=== PATIENT | female | born 1960 | race Caucasian/White ===

== ENCOUNTER 2017-06-11 17:33 | Observation (INO) ==
[2017-06-11] MEDS: *HR* Dextrose 50 % in Water (Syg) 50 ML SYRINGE ONE ×3 (17:38→19:03)
--- NOTE | 2017-06-11 17:49 | Emergency Department Note ---
Disposition Clinical Impression: Altered mental status, Diabetes mellitus, Hypoglycemia Disposition: Admitted As Inpatient Condition: Fair Referrals: NONE,PCP [Non-Partnered Physician] - Forms: ED Satisfaction Letter Time of Disposition: 21:00 ([facility]) Altered Mental Status HPI - General Chief Complaint: ED Altered Mental Status Stated Complaint: altered mental status Time Seen by Provider: 06/11/17 17:36 Source: EMS Mode of arrival: EMS Limitations: altered mental status Nursing Notes Reviewed: Yes Vital Signs Reviewed: Yes - History of Present Illness HPI Narrative: She arrives unable to what is occurring she apparently was at dialysis per EMS when they went to pick her up they had poor her out of the chair as they " stated because she was unable to be aroused they stated that she had been sleeping through dialysis the whole shift where she is on for 4 hours as result that EMS was unable to arouse renal sternal rub they brought her directly to the emergency room for evaluation they did not do IV or give any medications in route they were less than 2 minutes away from our facility as result bringing her directly to the ER for mental status MD complaint: altered mental status, decreased responsiveness Onset (ago): hour(s) (2) Timing confirmed by: other (ems) Pain Severity: none Consistency of Symptoms: constant Context: diabetes Associated symptoms: Reports: other (And unable to provide history as result patient arrived unresponsive) - Related Data Home Medications Medication Instructions Recorded Confirmed Insulin ASPART [NovoLOG] 20 - 45 unit SQ TIDWM 05/16/15 06/02/17 Albuterol Sulfate [Ventolin Hfa] 2 puff IH Q4H PRN 09/07/15 06/02/17 Budesonide/Formoterol 160/4.5 2 puff IH BIDR 09/07/15 06/02/17 [Symbicort] Ipratropium/Albuterol Neb [Duoneb] 3 ml IH Q6HR PRN 09/07/15 06/02/17 Omeprazole [PriLOSEC] 20 mg PO DAILY 02/13/16 06/02/17 Fenofibrate [Tricor] 54 mg PO DAILY 07/09/16 06/02/17 Insulin Glargine,Hum.rec.anlog 45 units SQ BID 07/09/16 06/02/17 [Toujohn Solostmandy] Aspirin [Lo-Dose Aspirin EC] 81 mg PO DAILY 08/05/16 06/02/17 Gabapentin [Neurontin] 100 mg PO TID 08/05/16 06/02/17 Cholecalciferol (Vitamin D3) 5,000 unit PO DAILY 08/20/16 06/02/17 [Vitamin D3] Tiotropium [Spiriva] 1 cap IH DAILY 09/18/16 06/02/17 Metoprolol [Lopressor] 12.5 mg PO BID 10/23/16 06/02/17 Calcium Acetate [Phos-LO] 1,334 mg PO TIDWM 12/29/16 06/02/17 Previous Rx's Medication Instructions Recorded Ferrous Sulfate 325 mg PO BIDWM #60 tablet 09/04/16 Darbepoetin [Aranesp] 40 mcg SQ QWEEK 06/06/17 HYDROcodone/Acet 5/325 mg [[place] 1 tab PO Q8HR PRN #15 tab 06/06/17 5-325 mg] LORazepam [Ativan] 0.5 mg PO BID PRN #15 tab 06/06/17 Lisinopril [Zestril] 20 mg PO DAILY #0 06/06/17 predniSONE [PredniSONE] 40 mg PO DAILY #10 tab 06/06/17 Allergies Allergy/AdvReac Type Severity Reaction Status Date / Time isosorbide [From Imdur] Allergy Chest Pain Verified 05/31/17 16:01 Penicillins [PCN] Allergy Swelling Verified 05/31/17 16:01 of Lip/Tongue/Throat prednisone Allergy Joint Pain Verified 05/31/17 16:01 clopidogrel [From Plavix] AdvReac Nose Bleed Verified 05/31/17 16:01 divalproex sodium AdvReac Rash Verified 05/31/17 16:01 NSAIDS (Non-Steroidal AdvReac Gastrointestinal Verified 05/31/17 16:01 Anti-Inflamma Upset sulfamethoxazole AdvReac Hives Verified 05/31/17 16:01 [From Septra] tramadol [From Ultram] AdvReac Swelling Verified 05/31/17 16:01 of Lip/Tongue/Throat trimethoprim [From Septra] AdvReac Hives Verified 05/31/17 16:01 Limitations: ROS unobtainable due to patients medical condition Past Medical History - Past Medical History Attestation: Yes The following information was validated with the patient. Source: unable to obtain, old records reviewed, obtained from family, nursing notes reviewed Medical history: Reports: arthritis, cirrhosis, CHF, COPD, coronary artery disease, diabetes, dialysis, hyperlipidemia, hypertension, kidney stones, liver disease, peripheral artery disease, renal disease, other Surgical history: Reports: cholecystectomy, herniorrhaphy, hysterectomy, other Psychiatric history: Reports: anxiety, bipolar, depression, panic disorder, PTSD FLAP MAKER history: Reports: no FLAP MAKER history - Social History Smoking Status: Current every day smoker Smokeless Tobacco Status: No Alcohol use: Reports: heavy Drug use: Reports: marijuana Physical Exam - General Limitations: altered mental status General appearance: lethargic, obese - Head Head exam: normocephalic, normal inspection, other - Expanded Head Exam 1 - Bruise underneath the submental area of the face and neck - Eye Eye exam: Present: normal appearance, PERRL, EOMI - ENT ENT exam: normal exam, normal oropharynx, mucous membranes moist, normal external ear exam - Neck Neck exam: Present: normal inspection, full ROM, trachea midline - Chest Chest inspection: Present: normal inspection, symmetric chest wall rise - Respiratory Respiratory exam: Present: normal lung sounds bilaterally - Cardiovascular Cardiovascular exam: Present: regular rate, normal rhythm, normal heart sounds - Abdominal Exam Abdominal exam: Present: soft, Non-Tender, normal bowel sounds. Absent: mass, pulsatile mass - Extremities Exam Extremities exam: Present: normal inspection, full ROM, normal capillary refill , other (responds to tactile stimulation). Absent: tenderness, pedal edema, joint swelling, calf tenderness - Expanded Lower Extremity Exam Neurovascular/Tendon exam: Present: normal capillary refill, normal fine/light touch Gait: not tested/not observed - Back Exam Back exam: Present: normal inspection, full ROM. Absent: muscle spasm - Neurological Exam Neurological exam: Present: alert, CN II-XII intact, normal gait - Psychiatric Psychiatric exam: Present: other (unable) - Skin Skin exam: Present: warm, dry, intact, normal color Course Course Narrative: 56-year-old female minimally responsive upon arrival responded only to deep tactile stimulation as result the patient though patient was given Narcan Y Accu -Chek was being obtained which she had an Accu-Chek of 12 repeated it was 12 she was given an amp of glucose repeat Accu-Chek showed that her sugar then was only 50 patient still minimally responsive but was able to tell us her name at this point that she was not able to stay alert enough at this time to give her ability to eat or drink as result she was given an additional half of amp of glucose she was rechecked and then she was at 70 she was started to become much more alert she was placed on a glucose D10 drip a 80m/hr an Accu-Chek was repeated it was then 61 patient was then increased to 125 and glucose is 81 she is a were alert and she is able to carry on with conversation and she is now eating for staph taking multiple cups of Jell-O and apple sauce and drinking juices she is now back to her baseline as result though we will watch her overnight because she had a hypoglycemic event patient's and patient herself are very appreciative she had no complaints prior to going to dialysis patient was transferred to [facility] I did discuss case with Dr. Longoria she should be able to go home tomorrow because she is only on insulin she is not on any oral glycemic - Reevaluation(s) Reevaluation #1: Now alert oriented talking to myself and family resting comfortably in the bed Vital Signs Temperature 98.1 F 06/11/17 17:36 Pulse Rate 78 06/11/17 17:36 Respiratory Rate 26 06/11/17 17:36 Blood Pressure 159/75 06/11/17 17:36 O2 Sat by Pulse Oximetry 91 06/11/17 17:36 Temperature 98.1 F 06/11/17 17:36 Pulse Rate 66 06/11/17 20:49 Respiratory Rate 22 06/11/17 20:49 Blood Pressure 141/70 06/11/17 20:49 O2 Sat by Pulse Oximetry 100 06/11/17 20:49 Oxygen Delivery Oxygen Delivery Nasal Cannula Altered Mental Status - Differential Diagnosis Likely: altered mental status, delirium, dementia, hypoglycemia, hyponatremia - Medical Records Medical records reviewed: Yes I reviewed the patient's medical records. - Lab Data Lab results reviewed: Yes I reviewed the patient's lab results. Result diagrams: 06/11/17 17:52 06/11/17 17:52 Lab Results 06/11/17 06/11/17 06/11/17 Range/Units 17:36 17:38 17:52 WBC 11.0 D (4.3-11.1) K/mcL RBC 3.36 L (3.82-4.97) M/mcL Hgb 10.3 L (11.5-15.4) g/dL Hct 32.5 L (35.3-44.9) % MCV 96.7 (83.0-100.0) fL MCH 30.7 (28.0-33.3) pg MCHC 31.7 (31.6-35.5) g/dL RDW 14.6 H (11.5-14.5) % Plt Count 280 (140-400) K/mcL MPV 9.4 (9.4-12.4) fL Immature Gran % 0.5 (0-4) % Seg Neutrophils % 80.0 % Lymphocytes % 14.6 % Monocytes % 4.9 % Eosinophils % 0.0 % Basophils % 0.0 % Neutrophils # 8.8 (1.6-8.9) K/mcL Lymphocytes # 1.6 (0.6-4.6) K/mcL Monocytes # 0.5 (0.0-1.3) K/mcL Eosinophils # 0.0 (0.0-0.6) K/mcL Basophils # 0.0 (0.0-0.2) K/mcL PT (9.4-12.1) Seconds INR APTT (26.0-36.0) Seconds Sodium (136-145) mEq/L Potassium (3.5-4.5) mEq/L Chloride (98-109) mEq/L Carbon Dioxide (19-29) mEq/L BUN (7-20) mg/dL Creatinine (0.57-1.11) mg/dL Est GFR ( Amer) (> 60) Est GFR (Non-Af Amer) (> 60) BUN/Creatinine Ratio (6-26) Glucose (70-99) mg/dL POC Glucose 12 L* 12 L* (58-89) Calculated Osmolality (280-300) Calcium (8.6-10.8) mg/dL Troponin I (0-0.03) ng/mL 06/11/17 06/11/17 06/11/17 Range/Units 17:52 17:52 17:52 WBC (4.3-11.1) K/mcL RBC (3.82-4.97) M/mcL Hgb (11.5-15.4) g/dL Hct (35.3-44.9) % MCV (83.0-100.0) fL MCH (28.0-33.3) pg MCHC (31.6-35.5) g/dL RDW (11.5-14.5) % Plt Count (140-400) K/mcL MPV (9.4-12.4) fL Immature Gran % (0-4) % Seg Neutrophils % % Lymphocytes % % Monocytes % % Eosinophils % % Basophils % % Neutrophils # (1.6-8.9) K/mcL Lymphocytes # (0.6-4.6) K/mcL Monocytes # (0.0-1.3) K/mcL Eosinophils # (0.0-0.6) K/mcL Basophils # (0.0-0.2) K/mcL PT 10.4 (9.4-12.1) Seconds INR 1.0 APTT 23.5 L (26.0-36.0) Seconds Sodium 133 L (136-145) mEq/L Potassium 3.6 (3.5-4.5) mEq/L Chloride 97 L (98-109) mEq/L Carbon Dioxide 22 (19-29) mEq/L BUN 34 H (7-20) mg/dL Creatinine 3.60 H (0.57-1.11) mg/dL Est GFR ( Amer) 16 L (> 60) Est GFR (Non-Af Amer) 13 L (> 60) BUN/Creatinine Ratio 9 (6-26) Glucose 113 H (70-99) mg/dL POC Glucose (58-89) Calculated Osmolality 284 (280-300) Calcium 8.9 (8.6-10.8) mg/dL Troponin I 0.05 H* (0-0.03) ng/mL 06/11/17 Range/Units 18:08 WBC (4.3-11.1) K/mcL RBC (3.82-4.97) M/mcL Hgb (11.5-15.4) g/dL Hct (35.3-44.9) % MCV (83.0-100.0) fL MCH (28.0-33.3) pg MCHC (31.6-35.5) g/dL RDW (11.5-14.5) % Plt Count (140-400) K/mcL MPV (9.4-12.4) fL Immature Gran % (0-4) % Seg Neutrophils % % Lymphocytes % % Monocytes % % Eosinophils % % Basophils % % Neutrophils # (1.6-8.9) K/mcL Lymphocytes # (0.6-4.6) K/mcL Monocytes # (0.0-1.3) K/mcL Eosinophils # (0.0-0.6) K/mcL Basophils # (0.0-0.2) K/mcL PT (9.4-12.1) Seconds INR APTT (26.0-36.0) Seconds Sodium (136-145) mEq/L Potassium (3.5-4.5) mEq/L Chloride (98-109) mEq/L Carbon Dioxide (19-29) mEq/L BUN (7-20) mg/dL Creatinine (0.57-1.11) mg/dL Est GFR ( Amer) (> 60) Est GFR (Non-Af Amer) (> 60) BUN/Creatinine Ratio (6-26) Glucose (70-99) mg/dL POC Glucose 56 L (58-89) Calculated Osmolality (280-300) Calcium (8.6-10.8) mg/dL Troponin I (0-0.03) ng/mL - EKG Data EKG attestation: Yes I reviewed and interpreted this EKG. EKG results narrative: Sinus rhythm rate 73 MT 164 QRS 101 QT 385 axis LII TPA Checklist - LKW: 3-4.5 hrs Add. Warnings/Precautions Patient/family understanding: The patient/family members have been counseled and understood the risk, benefit , and alternatives of treatment. Critical Care Time Critical Care Time: Yes Total Critical Care Time: 40 Attestation: Critical care performed: 40 minutes as result of the patient being minimally responsive lethargic difficult to arouse which was found to be secondary to the hypoglycemia having to having started her on an dextro strip discussion with Dr. Longoria and admission to our services Time is exclusive of separately billable procedures. Time includes: direct patient care, patient reassessment, coordination of patient care, interpretation of data (laboratory data, radiology data, and respiratory data), review of patient's medical records, medical consultation and documentation of patient care. Procedures included in critical care time: Procedures excluded from critical care time:
[2017-06-11 18:00] LABS: Hematocrit 32.5 % (35.3-44.9); Hemoglobin 10.3 g/dL (11.5-15.4); Immature Granulocytes % 0.5 % (0-4); Lymphocytes # 1.6 K/mcL (0.6-4.6); Lymphocytes % 14.6 %; Mean Corpuscular HGB Conc 31.7 g/dL (31.6-35.5); Mean Corpuscular Hemoglobin 30.7 pg (28.0-33.3); Mean Corpuscular Volume 96.7 fL (83.0-100.0); Mean Platelet Volume 9.4 fL (9.4-12.4); Monocytes # 0.5 K/mcL (0.0-1.3); Monocytes % 4.9 %; Neutrophils # 8.8 K/mcL (1.6-8.9); Platelet Count 280 K/mcL (140-400); Red Blood Count 3.36 M/mcL (3.82-4.97); Red Cell Distribution Width 14.6 % (11.5-14.5)
[2017-06-11 18:08] LABS: Prothrombin Time 10.4 Seconds (9.4-12.1)
[2017-06-11 18:11] LABS: Activated Partial Thrombo Time 23.5 Seconds (26.0-36.0)
[2017-06-11 18:20] LABS: Calcium 8.9 mg/dL (8.6-10.8); Potassium 3.6 mEq/L (3.5-4.5)
[2017-06-11] MEDS ORDERED: D10% in Water 500 ML IVC ONE (18:21)
[2017-06-11] MEDS ORDERED: *HR* Dextrose 50 % in Water (Syg) 50 ML SYRINGE IVP ONE (18:21)
[2017-06-11] MEDS ORDERED: D10% in Water 500 ML IV SOLUTION IVC STA (18:21)
[2017-06-11] MEDS ORDERED: *HR* Dextrose 50 % in Water (Syg) 50 ML SYRINGE ONE (18:22)
[2017-06-11] MEDS ORDERED: *HR* HYDROcodone/Acet 5/325 mg TABLET PO PRN (22:02)
[2017-06-11] MEDS ORDERED: Dextrose Gel 15 GM PO PRN ×2 (22:02)
[2017-06-11] MEDS ORDERED: Ipratropium/Albuterol Neb 3 ML IH PRN (22:02)
[2017-06-11] MEDS ORDERED: Naloxone 0.4 MG/ML INJ IVP PRN (22:02)
[2017-06-11] MEDS ORDERED: *HR* LORazepam 0.5 MG TABLET PO PRN (22:02)
[2017-06-11] MEDS ORDERED: D5% in Water 1,000 ML IVC PRN (22:02)
[2017-06-11] MEDS: Gabapentin 100 MG CAPSULE PO SCH (22:35)
[2017-06-11] MEDS: Budesonide/Formoterol 160/4.5 MDI IH SCH (22:50)
[2017-06-12] MEDS ORDERED: Insulin LISPRO 300 UNITS/3 ML VIAL SQ SCH (07:30)
[2017-06-12 07:31] LABS: Basophils % 0.1 %; Eosinophils # 0.1 K/mcL (0.0-0.6); Eosinophils % 0.6 %; Hematocrit 29.3 % (35.3-44.9); Hemoglobin 9.1 g/dL (11.5-15.4); Immature Granulocytes % 0.3 % (0-4); Lymphocytes % 19.5 %; Mean Corpuscular HGB Conc 31.1 g/dL (31.6-35.5); Mean Corpuscular Hemoglobin 30.4 pg (28.0-33.3); Monocytes # 0.9 K/mcL (0.0-1.3); Monocytes % 7.9 %; Platelet Count 247 K/mcL (140-400); Red Blood Count 2.99 M/mcL (3.82-4.97); Red Cell Distribution Width 14.9 % (11.5-14.5); Segmented Neutrophils % 71.6 %
[2017-06-12 07:32] LABS: Prothrombin Time 10.7 Seconds (9.4-12.1)
[2017-06-12 07:37] LABS: Activated Partial Thrombo Time 19.9 Seconds (26.0-36.0)
[2017-06-12 07:39] LABS: Lymphocytes # 2.2 K/mcL (0.6-4.6); Neutrophils # 8.2 K/mcL (1.6-8.9)
[2017-06-12] MEDS: *HR* Dextrose 50 % in Water (Syg) 50 ML SYRINGE IVP PRN ×3 (07:39→08:04)
[2017-06-12 07:48] LABS: Calcium 8.4 mg/dL (8.6-10.8); Potassium 4.8 mEq/L (3.5-4.5)
[2017-06-12] MEDS ORDERED: Calcium Acetate 667 MG CAPSULE PO SCH (08:00)
[2017-06-12] MEDS: Gabapentin 100 MG CAPSULE PO SCH (08:13)
[2017-06-12 08:35] VITALS: BP 151/83
[2017-06-12] MEDS ORDERED: Tiotropium 18 MCG inhalation IH SCH (09:00)
[2017-06-12] MEDS ORDERED: Lisinopril 20 MG TABLET PO SCH (09:00)
[2017-06-12] MEDS ORDERED: Aspirin Enteric Coated 81 MG Tablet PO SCH (09:00)
[2017-06-12] MEDS ORDERED: Fenofibrate 54 MG TABLET PO SCH (09:00)
[2017-06-12] MEDS ORDERED: predniSONE 20 MG TABLET PO SCH (09:00)
[2017-06-12] MEDS ORDERED: Cholecalciferol (D-3) 1,000 UNIT TABLET PO SCH (09:00)
[2017-06-12] MEDS: Budesonide/Formoterol 160/4.5 MDI IH SCH (09:21)
--- NOTE | 2017-06-12 12:15 | Internal Med History&Physical ---
Date of Encounter: 06/12/17 Time of Encounter: 11:40 Assessment and Plan (1) Hypoglycemia Current visit: Yes Status: Acute IV dextrose has been given through emergency room. Blood sugars will be monitored and further intervention done as needed. Internal Medicine - H&P: HPI Chief complaint: Hypoglycemia Admitted From: Home Plans for Post Hospital Care: Home History of present illness: Ms. Mcfarlane is a 56 year old female was brought to emergency room after she was noted to be unresponsive after completing dialysis. 7 have a blood sugar of 12 mg percent. She was given IV dextrose admitted to [facility] floor for ongoing care needs. She was diagnosed with DM 2 approximately 30 years ago. She states she checks her sugars approximately 5 times daily and readings have been frequently below 100 mg percent in the past few days. She has not adjusted her dose of Toujeo or SS NovoLog however. She states she feels back to her baseline now. Her endocrine history is pertinent otherwise for hyperlipidemia but no known thyroid disease. Past Med Surg Social Fam HX - Past Medical History Medical history: arthritis, cirrhosis, CHF, COPD, coronary artery disease, diabetes, dialysis, hyperlipidemia, hypertension, kidney stones, liver disease, peripheral artery disease, renal disease, other Psychiatric history: anxiety, bipolar, depression, panic disorder, PTSD - Past Surgical History Surgical History: cholecystectomy, herniorrhaphy, hysterectomy, other - Social History Smoking Status: Current every day smoker Smokeless Tobacco Status: No Alcohol use: heavy Drug use: marijuana - Family History Mother Living Status: Hx Family Cardiac Disorders: Yes Hx Family Endocrine Disorder: Yes Father Adopted: No Living Status: Hx Family Cardiac Disorders: Yes Hx Family Respiratory Disorders: No Hx Family Cancer: No Hx Family GI Disorders: No Hx Family Endocrine Disorder: No Hx Family Neuromuscular Disorders: No Hx Family Neurologic Disorders: No Hx Family HEENT Disorders: No Hx Family Autoimmune Disorders: No Internal Medicine - H&P: Meds Insulin ASPART [NovoLOG] 20 - 45 unit SQ TIDWM 05/16/15 [History] Albuterol Sulfate [Ventolin Hfa] 2 puff IH Q4H PRN 09/07/15 [History] Budesonide/Formoterol 160/4.5 [Symbicort] 2 puff IH BIDR 09/07/15 [History] Ipratropium/Albuterol Neb [Duoneb] 3 ml IH Q6HR PRN 12/17/15 [History] Omeprazole [PriLOSEC] 20 mg PO DAILY 02/13/16 [History] Fenofibrate [Tricor] 54 mg PO DAILY 07/09/16 [History] Insulin Glargine,Hum.rec.anlog [Toujeo Solostar] 45 units SQ BID 07/09/16 [ History] Aspirin [Lo-Dose Aspirin EC] 81 mg PO DAILY 08/05/16 [History] Gabapentin [Neurontin] 100 mg PO TID 08/05/16 [History] Cholecalciferol (Vitamin D3) [Vitamin D3] 5,000 unit PO DAILY 08/20/16 [History] Ferrous Sulfate 325 mg PO BIDWM #60 tablet 09/04/16 [Rx] Tiotropium [Spiriva] 1 cap IH DAILY 09/18/16 [History] Metoprolol [Lopressor] 12.5 mg PO BID 10/23/16 [History] Calcium Acetate [Phos-LO] 1,334 mg PO TIDWM 12/29/16 [History] Darbepoetin [Aranesp] 40 mcg SQ QWEEK 06/06/17 [Rx] HYDROcodone/Acet 5/325 mg [[place] 5-325 mg] 1 tab PO Q8HR PRN #15 tab 06/06/17 [ Rx] LORazepam [Ativan] 0.5 mg PO BID PRN #15 tab 06/06/17 [Rx] Lisinopril [Zestril] 20 mg PO DAILY #0 06/06/17 [Rx] predniSONE [PredniSONE] 40 mg PO DAILY #10 tab 06/06/17 [Rx] 3 Allergy/AdvReac Type Severity Reaction Status Date / Time isosorbide [From Imdur] Allergy Chest Pain Verified 05/31/17 16:01 Penicillins [PCN] Allergy Swelling Verified 05/31/17 16:01 of Lip/Tongue/Throat prednisone Allergy Joint Pain Verified 05/31/17 16:01 clopidogrel [From Plavix] AdvReac Nose Bleed Verified 05/31/17 16:01 divalproex sodium AdvReac Rash Verified 05/31/17 16:01 NSAIDS (Non-Steroidal AdvReac Gastrointestinal Verified 05/31/17 16:01 Anti-Inflamma Upset sulfamethoxazole AdvReac Hives Verified 05/31/17 16:01 [From Septra] tramadol [From Ultram] AdvReac Swelling Verified 05/31/17 16:01 of Lip/Tongue/Throat trimethoprim [From Septra] AdvReac Hives Verified 05/31/17 16:01 All Systems PM: A 10-system review of systems was performed and is negative for pertinent findings except as documented above in the HPI. Review of systems: Review of systems from her July 2016 [facility] hospitalization were reviewed and revised as below. Gen.: Her weight has decreased from 125.4 kg at the February 2016 hospitalization to 101.605 kg at present. Cardiovascular: She has history of hypertension. She had heart catheterization 01/19/2015 which showed proximal RCA with 60% stenosis, mid RCA with 30% stenosis, and LMCA and LAD with 20% stenoses. Other vessels were angiographically free of disease. The LVEF was 65%. She denies MS DVT or pulmonary embolus. She had an echocardiogram 07/12/2016 which showed LVEF of 60 % with mild left ventricular diastolic dysfunction. There was no significant valvular abnormality. Respiratory: She has smoked since age 25 up to pack per day. She has a diagnosis of COPD and wears oxygen at home 14/04. She has EDUARD with sleep study done December 2015. She was ordered BiPAP at settings of 06/09. GI: She has been diagnosed with NAFLD. She has GERD and has had cholecystectomy. She denies disorders of her exocrine pancreas. The old chart reports a diagnosis of Crohn's disease but she denies this. She also has had diverticulitis. She reports she has had diarrhea recently. : She has chronic kidney disease stage V and has been on dialysis for several months. She has no other known kidney or bladder problems. Neurologic: She has been diagnosed with drug induced Parkinson's disease. She denies large distribution strokes or seizures. Endocrine: As per history of present illness. Hematology/oncology: She has anemia but no known internal malignancies. Anemia testing done June 2016 showed no factor deficiency. Psychiatric: She has anxiety, bipolar disorder, and schizophrenia. [place] skeletal: She has DJD, gout, and osteoporosis. - Constitutional Vitals: Temp Pulse Resp BP Pulse Ox 97.7 F 87 17 151/83 92 06/12/17 07:39 06/12/17 07:39 06/12/17 09:23 06/12/17 07:39 06/12/17 09:23 Exam: Gen.: She is a well-developed overweight female sitting on the side of the bed appears in no acute distress. HEENT: Head is atraumatic and normocephalic. Eyes: EOMI. There is no scleral icterus. Mouth: Mucosa is moist. Neck: There is no thyromegaly or adenopathy noted. Heart: Regular without murmurs gallops or ectopics Lungs: No wheezes or crackles are heard. Abdomen: She has a large abdomen. It is nontender to palpation. Exam is limited because she is in the seated position. Extremities: There is no cyanosis edema or clubbing noted. Dorsalis pedis and posterior tibial pulses are trace palpable bilaterally. Her feet are warm to touch. Neurologic: Mental status: She is talkative and a fair to good historian. She has difficulty remembering some details of her history. Cranial nerves: Smile is symmetric. Forehead wrinkles bilaterally. Tongue protrudes midline. EOMI. Motor: There is no pronator drift. Cerebellar: Finger to nose is intact bilaterally. Skin: Warm and dry Internal Med - H&P Results - Labs CBC & Chem 7: 06/12/17 06:57 06/12/17 07:24 Labs: Short CBC 06/12/17 Range/Units 06:57 WBC 11.5 H (4.3-11.1) K/mcL Hgb 9.1 L (11.5-15.4) g/dL Hct 29.3 L (35.3-44.9) % Plt Count 247 (140-400) K/mcL Neutrophils # 8.2 (1.6-8.9) K/mcL BMP 06/12/17 06/12/17 06:57 07:24 Sodium 132 L Potassium 4.8 H D Chloride 96 L Carbon Dioxide 25 BUN 45 H D Creatinine 4.66 H Glucose 31 L* 31 L* Calcium 8.4 L
--- NOTE | 2017-06-12 12:45 | Discharge Summary ---
Date of Encounter: 06/12/17 Time of Encounter: 11:40 - Discharge Diagnosis (1) Hypoglycemia Priority: Primary Status: Acute - Discharge Medications Home Medications: Insulin ASPART [NovoLOG] 20 - 45 unit SQ TIDWM 05/16/15 [History] Albuterol Sulfate [Ventolin Hfa] 2 puff IH Q4H PRN 09/07/15 [History] Budesonide/Formoterol 160/4.5 [Symbicort] 2 puff IH BIDR 09/07/15 [History] Ipratropium/Albuterol Neb [Duoneb] 3 ml IH Q6HR PRN 09/07/15 [History] Omeprazole [PriLOSEC] 20 mg PO DAILY 02/13/16 [History] Fenofibrate [Tricor] 54 mg PO DAILY 07/09/16 [History] Aspirin [Lo-Dose Aspirin EC] 81 mg PO DAILY 08/05/16 [History] Gabapentin [Neurontin] 100 mg PO TID 08/05/16 [History] Cholecalciferol (Vitamin D3) [Vitamin D3] 5,000 unit PO DAILY 08/20/16 [History] Ferrous Sulfate 325 mg PO BIDWM #60 tablet 09/04/16 [Rx] Tiotropium [Spiriva] 1 cap IH DAILY 09/18/16 [History] Metoprolol [Lopressor] 12.5 mg PO BID 10/23/16 [History] Calcium Acetate [Phos-LO] 1,334 mg PO TIDWM 12/29/16 [History] Darbepoetin [Aranesp] 40 mcg SQ QWEEK 06/06/17 [Rx] HYDROcodone/Acet 5/325 mg [[place] 5-325 mg] 1 tab PO Q8HR PRN #15 tab 06/06/17 [ Rx] LORazepam [Ativan] 0.5 mg PO BID PRN #15 tab 06/06/17 [Rx] Lisinopril [Zestril] 20 mg PO DAILY #0 06/06/17 [Rx] predniSONE [PredniSONE] 40 mg PO DAILY #10 tab 06/06/17 [Rx] Insulin Glargine,Hum.rec.anlog [Toujeo Solostar] 60 units SQ DAILY #0 06/12/17 [ Rx] Allergies/Adverse Reactions: 3 Allergy/AdvReac Type Severity Reaction Status Date / Time isosorbide [From Imdur] Allergy Chest Pain Verified 05/31/17 16:01 Penicillins [PCN] Allergy Swelling Verified 05/31/17 16:01 of Lip/Tongue/Throat prednisone Allergy Joint Pain Verified 05/31/17 16:01 clopidogrel [From Plavix] AdvReac Nose Bleed Verified 05/31/17 16:01 divalproex sodium AdvReac Rash Verified 05/31/17 16:01 NSAIDS (Non-Steroidal AdvReac Gastrointestinal Verified 05/31/17 16:01 Anti-Inflamma Upset sulfamethoxazole AdvReac Hives Verified 05/31/17 16:01 [From Septra] tramadol [From Ultram] AdvReac Swelling Verified 05/31/17 16:01 of Lip/Tongue/Throat trimethoprim [From Septra] AdvReac Hives Verified 05/31/17 16:01 Procedures/tests Complete & Pending: Procedures Performed prior 72 hours Category Date Time Status ECG 12 lead ECG [ECG] Stat Y 06/12/17 06:59 Completed Date of admission: 06/11/17 21:09 Primary care physician: Cricket Orellana - Patient Status Disposition: Home, Self-Care Condition: Fair Functional capacity at discharge: independent ambulation Overall status at discharge: patient is progressing back to baseline - Discharge Instructions Follow Up With: Cricket Orellana [Primary Care Provider] - 1 week - Diet and Activity Activity: resume usual activities as tolerated Diet: diabetic diet Hospital course: Ms. Mcfarlane is a 56 year old female who was brought to emergency room after she was noted to be unresponsive after completing dialysis. She was found to have a blood sugar of 12 mg percent. She was given IV dextrose and admitted to [facility] for ongoing care needs. Initial orders written by the emergency room physician. I saw her on June 12 and performed a history physical and discharge. Insulin was held. Dextrose was given in boluses and continuous IV fluid. Her blood sugars recovered to a satisfactory range. Her mental status returned to what I felt was baseline. She had adequate intake of food and fluids. I felt she could be discharged home and follow with her PCP within one week. I told her to change Toujeo to 60 units daily as a single injection. She will continue to monitor Accu-Cheks frequently at home. Her PCP can further adjust insulin dose as needed. - Time Spent with Patient Total time spent providing and/or coordinating discharge services: - Constitutional Vitals: Temp Pulse Resp BP Pulse Ox 97.7 F 87 17 151/83 92 06/12/17 07:39 06/12/17 07:39 06/12/17 09:23 06/12/17 07:39 06/12/17 09:23
--- NOTE | 2017-06-12 13:51 | Physician Discharge Referral ---
ExtendedCare Referral Info Transfer To: [facility] Provider in Charge: Von Provider in Charge after Transfer: PCP - Diagnosis (1) Hypoglycemia Priority: Primary Status: Resolved Prognosis: Good Aware of Diagnosis: Patient Aware of Prognosis: Patient - Transfer Medications Home Medications: Insulin ASPART [NovoLOG] 20 - 45 unit SQ TIDWM 05/16/15 [History] Albuterol Sulfate [Ventolin Hfa] 2 puff IH Q4H PRN 09/07/15 [History] Budesonide/Formoterol 160/4.5 [Symbicort] 2 puff IH BIDR 09/07/15 [History] Ipratropium/Albuterol Neb [Duoneb] 3 ml IH Q6HR PRN 09/07/15 [History] Omeprazole [PriLOSEC] 20 mg PO DAILY 02/13/16 [History] Fenofibrate [Tricor] 54 mg PO DAILY 07/09/16 [History] Aspirin [Lo-Dose Aspirin EC] 81 mg PO DAILY 08/05/16 [History] Gabapentin [Neurontin] 100 mg PO TID 08/05/16 [History] Cholecalciferol (Vitamin D3) [Vitamin D3] 5,000 unit PO DAILY 08/20/16 [History] Ferrous Sulfate 325 mg PO BIDWM #60 tablet 09/04/16 [Rx] Tiotropium [Spiriva] 1 cap IH DAILY 09/18/16 [History] Metoprolol [Lopressor] 12.5 mg PO BID 10/23/16 [History] Calcium Acetate [Phos-LO] 1,334 mg PO TIDWM 12/29/16 [History] Darbepoetin [Aranesp] 40 mcg SQ QWEEK 06/06/17 [Rx] HYDROcodone/Acet 5/325 mg [[place] 5-325 mg] 1 tab PO Q8HR PRN #15 tab 06/06/17 [ Rx] LORazepam [Ativan] 0.5 mg PO BID PRN #15 tab 06/06/17 [Rx] Lisinopril [Zestril] 20 mg PO DAILY #0 06/06/17 [Rx] predniSONE [PredniSONE] 40 mg PO DAILY #10 tab 06/06/17 [Rx] Insulin Glargine,Hum.rec.anlog [Toujeo Solostar] 60 units SQ DAILY #0 06/12/17 [ Rx] Allergies/Adverse Reactions: 3 Allergy/AdvReac Type Severity Reaction Status Date / Time isosorbide [From Imdur] Allergy Chest Pain Verified 05/31/17 16:01 Penicillins [PCN] Allergy Swelling Verified 05/31/17 16:01 of Lip/Tongue/Throat prednisone Allergy Joint Pain Verified 05/31/17 16:01 clopidogrel [From Plavix] AdvReac Nose Bleed Verified 05/31/17 16:01 divalproex sodium AdvReac Rash Verified 05/31/17 16:01 NSAIDS (Non-Steroidal AdvReac Gastrointestinal Verified 05/31/17 16:01 Anti-Inflamma Upset sulfamethoxazole AdvReac Hives Verified 05/31/17 16:01 [From Septra] tramadol [From Ultram] AdvReac Swelling Verified 05/31/17 16:01 of Lip/Tongue/Throat trimethoprim [From Septra] AdvReac Hives Verified 05/31/17 16:01 - Respiratory Orders Smoking Cessation: Smoking cessation has been advised. For more information, call the [place] Tobacco Quit Line at 0-799-CVRT-NOW. - Mobility Orders Ambulate - Rehabiliation Orders Rehab Potential: Fair - Diet Orders No Concentrated Sweets CERTIFICATION: I certify that the transfer of the above named patient to an Extended Care Facility is necessary for the continuing treatment of the diagnosis listed. The above information is true and accurate reflection of patient's current condition. Confidential - Redisclosure prohibited without a patient's written consent.
--- NOTE | 2017-06-16 08:34 | Electrocardiograph Report ---
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
--- NOTE | 2017-06-16 08:35 | Electrocardiograph Report ---
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
--- NOTE | 2017-06-16 08:35 | Electrocardiograph Report ---
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
== END 2017-06-12 15:45 ==
LOC: EMEROOPIK 17:33 → INPPIK 17:33
PROVIDERS: ADMIT Internal Medicine; ATTEND Internal Medicine